=== PATIENT | female | born 1970 | race African-American/Black ===

== ENCOUNTER 2016-08-08 08:57 | Emergency (ER) | payer OTHER ==
[~2016-08-08] VITALS: Ht 157.5 cm; Wt 97.5 kg
[~2016-08-08 08:57] MED LIST: ACETAMINOPHEN-120 ML PO; ALBUTEROL NEB; ALBUTEROL2.5 MG/0.5 INH; ALBUTEROL2.5 MG/31 IH; CELEXA 10 MG TA10 MG PO; DARVOCET-N 1001 EACH PO; DIAMOX SEQUELS500 MG PO; DULERA 200 MCG/13 GM PO; HYDROCHLOROTHIA25 M1 PO; IBUPROFEN 800800 M1 PO; KLOR-CON 1010 MEQ PO; LISINOPRIL10 MG PO; MEDROLDOSEPACK PO; NORCO 5-325 TA1 EACH PO; NORVASC10 MG PO; POTASSIUM20 PO; VENTOLIN HFA 1818 GM INH; VENTOLIN17 GM INH; ZPAK PO
[2016-08-08 09:00] VITALS: BP 142/101
[2016-08-08] MEDS ORDERED: IBUPROFEN 600600 M1 PO (09:13)
[2016-08-08] MEDS ORDERED: TIZANIDINE HCL4 MG PO (09:13)
== END 2016-08-08 09:22 | disposition home or self-care (01) ==
LOC: ER 08:57
DX: S16.1XXA Strain of muscle, fascia and tendon at neck level, initial encounter (principal); I10 Essential (primary) hypertension; J45.909 Unspecified asthma, uncomplicated; Z90.710 Acquired absence of both cervix and uterus; V89.0XXA Person injured in unspecified motor-vehicle accident, nontraffic, initial encounter; Y93.89 Activity, other specified; Y92.89 Other specified places as the place of occurrence of the external cause; Y99.8 Other external cause status

== ENCOUNTER 2016-12-04 16:53 | Emergency (ER) | payer OTHER ==
[~2016-12-04] VITALS: Ht 157.5 cm; Wt 102.1 kg
[~2016-12-04 16:53] MED LIST changes: +IBUPROFEN 600600 M1 PO; +TIZANIDINE HCL4 MG PO
[2016-12-04] MEDS ORDERED: ADIPEX-P37.5 MG PO (17:09)
[2016-12-04] MEDS ORDERED: DUONEB 2.5-0.5 M3 ML INH (18:32)
[2016-12-04] MEDS ORDERED: PREDNISONE 20 M20 MG PO (18:32)
[2016-12-04 19:10] VITALS: BP 145/89
== END 2016-12-04 19:10 | disposition home or self-care (01) ==
LOC: ER 16:53
DX: J45.901 Unspecified asthma with (acute) exacerbation (principal); I10 Essential (primary) hypertension; Z90.710 Acquired absence of both cervix and uterus

== ENCOUNTER 2017-05-16 15:16 | Emergency (ER) | payer BC ==
[~2017-05-16] VITALS: Ht 157.5 cm; Wt 99.8 kg
[~2017-05-16 15:16] MED LIST changes: +ADIPEX-P37.5 MG PO; +DUONEB 2.5-0.5 M3 ML INH; +PREDNISONE 20 M20 MG PO
[2017-05-16] MEDS ORDERED: MOBIC15 MG PO (16:16)
== END 2017-05-16 16:27 | disposition home or self-care (01) ==
LOC: ER 15:16
DX: M77.31 Calcaneal spur, right foot (principal); M25.561 Pain in right knee; I10 Essential (primary) hypertension; J45.909 Unspecified asthma, uncomplicated; Z90.710 Acquired absence of both cervix and uterus

== ENCOUNTER 2018-07-03 22:05 | Emergency (ER) | payer BC ==
[~2018-07-03] VITALS: Ht 157.5 cm; Wt 99.8 kg
[~2018-07-03 22:05] MED LIST changes: +CLARITIN10 MG PO; +IPRATROPIU0.2 MG/1 M INH; +MOBIC15 MG PO
[2018-07-04 00:29] VITALS: BP 152/99
--- NOTE | 2018-07-04 08:33 | EKG ---
[place] [address] [facility] [employer] [address] ELECTROCARDIOGRAM REPORT Name: JAZ WARD 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1970 Requested By: Rick Billingsley Order Number: [id number] MD: Eduardo Luis Measurements Intervals [place] Rate: 89 P: 76 IN: 206 QRS: 78 QRSD: 90 T: 24 QT: 372 QTc: 453 Interpretive Statements Sinus rhythm Borderline prolonged IN interval Nonspecific ST segment abnormality Compared to ECG 04/30/2007 01:38:[address] and T wave abnormality is now present Electronically Signed On 07-04-2018 8:33:20 CDT by Eduardo Luis [email or web address] ��������������������������������������������� <ELECTRONICALLY SIGNED> ���������������������������������������� By: Eduardo Luis MD, [facility] ��������������������������������������������� 07/04/18 08 34 34 Eduardo Luis MD, [facility] /EPI
== END 2018-07-04 00:29 | disposition home or self-care (01) ==
LOC: ER 22:05
DX: J45.901 Unspecified asthma with (acute) exacerbation (principal); I10 Essential (primary) hypertension; Z90.710 Acquired absence of both cervix and uterus

== ENCOUNTER 2018-12-02 14:09 | Emergency (ER) | payer BC ==
[~2018-12-02] VITALS: Ht 157.5 cm; Wt 108.9 kg
[2018-12-02 15:03] LABS: ABSOLUTE NEUTROPHILS 3.5 thou/uL (1.4-8.2); BASOPHILS 0.7 % (0.0-2.0); EOSINOPHILS 3.5 % (0.0-3.0); HEMATOCRIT 39.5 % (37.0-47.0); HEMOGLOBIN 13.3 gm/dL (12.0-15.0); LYMPHOCYTES 40.7 % (24.0-44.0); MCH 27.8 pg (26.0-34.0); MCHC 33.6 g/dL (28.0-37.0); MCV 82.7 fL (80.0-100.0); MONOCYTES 5.1 % (1.0-8.0); PLATELET COUNT 219 thou/uL (150-400); RBC 4.78 mil/uL (4.20-5.00); RDW 16.6 % (10.5-14.5)
[2018-12-02 15:15] LABS: ANION GAP 9 mmol/L (7-16); BUN 12 mg/dL (7-18); CALCIUM 9.8 mg/dL (8.5-10.1); CHLORIDE 95 mmol/L (98-107); CO2 26 mmol/L (21-32); CREATININE 0.7 mg/dL (0.6-1.0); GLUCOSE 73 mg/dL (74-106); POTASSIUM 3.1 mmol/L (3.5-5.1); SODIUM 130 mmol/L (136-145)
[2018-12-02] MEDS ORDERED: SPIRONOLACTONE25 M1 PO (15:18)
[2018-12-02 15:25] LABS: ALBUMIN 3.6 g/dL (3.4-5.0); MAGNESIUM 1.9 mg/dL (1.8-2.4); SGOT 27 U/L (15-37); SGPT 27 U/L (30-65); TOTAL BILIRUBIN 0.4 mg/dL (<0.1-1.0); TOTAL PROTEIN 8.2 g/dL (6.4-8.2); TROPONIN-I <0.06 ng/mL (<0.06)
[2018-12-02 18:04] VITALS: BP 149/99
--- NOTE | 2018-12-04 08:23 | EKG ---
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
== END 2018-12-02 18:05 ==
LOC: ER 14:09
PROVIDERS: Emergency Medicine
DX: R07.89 Other chest pain (principal); I10 Essential (primary) hypertension; J45.909 Unspecified asthma, uncomplicated; Z90.710 Acquired absence of both cervix and uterus

== ENCOUNTER 2019-04-10 11:19 | Emergency (ER) | payer OTHER ==
[~2019-04-10] VITALS: Ht 157.5 cm; Wt 99.8 kg
[~2019-04-10 11:19] MED LIST changes: +SPIRONOLACTONE25 M1 PO
[2019-04-10 13:17] LABS: URINE BILIRUBIN NEGATIVE (Negative); URINE BLOOD NEGATIVE (Negative); URINE CLARITY CLEAR; URINE COLOR YELLOW; URINE GLUCOSE-RANDOM* NEGATIVE (Negative); URINE KETONES NEGATIVE (Negative); URINE LEUKOCYTES-REFLEX NEGATIVE (Negative); URINE NITRITE-REFLEX NEGATIVE (Negative); URINE PROTEIN (DIPSTICK) NEGATIVE (Negative); URINE UROBILINOGEN 0.2 E.U./dl (0.2-1.0)
[2019-04-10] MEDS ORDERED: NORFLEX100 MG PO (13:38)
[2019-04-10] MEDS ORDERED: NAPROSYN500 MG PO (13:38)
[2019-04-10] MEDS ORDERED: NORCO 5-325 TA1 EAC1 PO (13:38)
[2019-04-10 13:57] VITALS: BP 141/62
== END 2019-04-10 13:57 | disposition home or self-care (01) ==
LOC: ER 11:19
PROVIDERS: Physician Assistant
DX: S39.012A Strain of muscle, fascia and tendon of lower back, initial encounter (principal); I10 Essential (primary) hypertension; J45.909 Unspecified asthma, uncomplicated; Z90.710 Acquired absence of both cervix and uterus; Z88.0 Allergy status to penicillin; W01.0XXA Fall on same level from slipping, tripping and stumbling without subsequent striking against object, initial encounter; Y92.89 Other specified places as the place of occurrence of the external cause; Y93.89 Activity, other specified; Y99.8 Other external cause status

== ENCOUNTER 2019-10-31 12:55 | Emergency (ER) | payer BC ==
[~2019-10-31] VITALS: Ht 160 cm; Wt 108.9 kg
[~2019-10-31 12:55] MED LIST changes: +NAPROSYN500 MG PO; +NORCO 5-325 TA1 EAC1 PO; +NORFLEX100 MG PO
[2019-10-31] MEDS ORDERED: HYDROCHLOROTHIA25 M2 PO (13:58)
[2019-10-31 14:41] LABS: BASOPHILS 0.4 % (0.0-2.0); EOSINOPHILS 2.7 % (0.0-3.0); HEMATOCRIT 42.1 % (37.0-47.0); HEMOGLOBIN 13.4 gm/dL (12.0-15.0); MCH 27.5 pg (26.0-34.0); MCHC 31.9 g/dL (28.0-37.0); MCV 86.1 fL (80.0-100.0); MONOCYTES 4.6 % (1.0-8.0); PLATELET COUNT 244 thou/uL (150-400); POLYS 52.3 % (36.0-66.0); RBC 4.89 mil/uL (4.20-5.00); RDW 16.8 % (10.5-14.5); WBC 7.6 thou/uL (4.0-11.0)
[2019-10-31 14:48] LABS: ANION GAP 9 mmol/L (7-16); BUN 10 mg/dL (7-18); CALCIUM 8.9 mg/dL (8.5-10.1); CHLORIDE 102 mmol/L (98-107); CO2 30 mmol/L (21-32); CREATININE 0.7 mg/dL (0.6-1.0); GLUCOSE 85 mg/dL (74-106); POTASSIUM 3.9 mmol/L (3.5-5.1); SODIUM 141 mmol/L (136-145)
[2019-10-31 14:58] LABS: TROPONIN-I <0.06 ng/mL (<0.06)
[2019-10-31] MEDS ORDERED: VIBRAMYCIN 100100 MG PO (17:51)
[2019-10-31] MEDS ORDERED: NAPROSYN500 MG PO (17:51)
[2019-10-31 18:11] VITALS: BP 138/79
--- NOTE | 2019-11-02 07:51 | EKG ---
[facility] [place] [address] ELECTROCARDIOGRAM REPORT Name: JAZ WARD Room #: DEP [facility]#: [id number] Admission: 10/31/19 Attend Phys: Discharge: 10/31/19 Date of : 68 Report #: [id number] THIS REPORT FOR: cc: Michelle Arriola Beth RNP Lundgren, Craig H. 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 : 1970 Requested By: Rick Billingsley Order Number: [id number] MD: Eduardo Luis Measurements Intervals [place] Rate: 80 P: 58 MI: 207 QRS: 60 QRSD: 90 T: 63 QT: 396 QTc: 457 Interpretive Statements Sinus rhythm Borderline prolonged MI interval Compared to ECG 12/02/2018 14:10:39 No significant changes Electronically Signed On 11-02-2019 7:51:32 CDT by Eduardo Luis [email or web address] <ELECTRONICALLY SIGNED> By: Eduardo Luis MD, [facility] 11/02/19 0751 1445 1445 Eduardo Luis MD, [facility] /EPI
== END 2019-10-31 18:11 | disposition home or self-care (01) ==
LOC: ER 12:55
PROVIDERS: Emergency Medicine
DX: J18.1 Lobar pneumonia, unspecified organism (principal); Z20.828 Contact with and (suspected) exposure to other viral communicable diseases; R07.89 Other chest pain; R10.9 Unspecified abdominal pain; I10 Essential (primary) hypertension; J45.909 Unspecified asthma, uncomplicated; Z88.0 Allergy status to penicillin; Z79.899 Other long term (current) drug therapy; Z90.710 Acquired absence of both cervix and uterus